=== PATIENT | male | born 1970 | race Two or more races ===

== ENCOUNTER 2019-08-09 13:15 | Emergency (ER) | payer OTHER ==
[~2019-08-09] VITALS: Ht 175.3 cm; Wt 117.0 kg
== END 2019-08-09 20:05 | disposition home or self-care (01) ==
LOC: ER 13:15
DX: L02.213 Cutaneous abscess of chest wall (principal)

== ENCOUNTER 2019-08-12 11:18 | Emergency (ER) | payer OTHER ==
[~2019-08-12] VITALS: Ht 175.3 cm; Wt 116.1 kg
[2019-08-12] MEDS ORDERED: KETO10TA2 (11:51)
[2019-08-12] MEDS ORDERED: CLINDAMYCIN (11:51)
== END 2019-08-12 14:48 | disposition home or self-care (01) ==
LOC: ER 11:18
DX: L02.213 Cutaneous abscess of chest wall (principal)